=== PATIENT | male | born 1975 | race Caucasian/White ===

== ENCOUNTER 2023-04-13 07:04 | Emergency (ER) | payer OTHER, BC ==
[2023-04-13] MEDS ORDERED: fentaNYL 50 MCG/ML SDV IVPUSH ONE ×2 (07:07→07:17)
[2023-04-13] MEDS: Sodium Chloride 0.9% 10 ML Syringe FLUSH PRN ×2 (07:09→07:19)
[2023-04-13] MEDS ORDERED: fentaNYL 50 MCG/ML SDV ONE (07:17)
== END 2023-04-13 08:30 | disposition home or self-care (01) ==
LOC: LL.ED 07:04
DX: S89.92XA Unspecified injury of left lower leg, initial encounter (principal); X50.1XXA Overexertion from prolonged static or awkward postures, initial encounter
CPT/HCPCS: 73562-LT; 96374; 99283; 99283-25; J3010; J3490